=== PATIENT | male | born 2000 | race Caucasian/White ===

== ENCOUNTER 2021-07-10 09:14 | Emergency (ER) | payer OTHER ==
[~2021-07-10] VITALS: Ht 182.9 cm; Wt 72.6 kg
[2021-07-10 09:27] VITALS: BP 138/80
--- NOTE | 2021-07-10 09:51 | NUR ---
BIB OFFICER Adrianna MOORE FOR PREBOOK FOR [facility]ERANCE S/P TC X TODAY. [facility]: [facility]
[2021-07-10 10:49] VITALS: BP 138/80
--- NOTE | 2021-07-10 10:49 | NUR ---
Patient discharged with v/s stable. Written and verbal after care instructions given and explained. Patient verbalized understanding. Police with in custody. All questions addressed prior to discharge. Advised to follow up with PMD.
== END 2021-07-10 10:49 ==
LOC: MED 09:14
DX: Z02.89 Encounter for other administrative examinations (principal); V89.2XXA Person injured in unspecified motor-vehicle accident, traffic, initial encounter; Y93.89 Activity, other specified; Y92.89 Other specified places as the place of occurrence of the external cause; Y99.8 Other external cause status
CPT/HCPCS: 99283